=== PATIENT | female | born 1970 | race Caucasian/White ===

== ENCOUNTER 2017-01-07 12:01 | Emergency (ER) | payer SELFPAY ==
[~2017-01-07] VITALS: Ht 160 cm; Wt 74.8 kg
[2017-01-07 12:04] VITALS: BP 111/70
--- NOTE | 2017-01-07 12:33 | PHYS DOC ---
Past Medical History Past Medical History: Anxiety, Hypertension, Other Additional Past Medical Histor: bursitis in R shoulder Past Surgical History: Cholecystectomy, Hysterectomy, Other Additional Past Surgical Histo: left knee; laparascopy Alcohol Use: None Drug Use: None Adult General Chief Complaint Chief Complaint: KNEE INJURY [facility] Patient is a 46 year old female presents emergency department stating that she fell going down a hill yesterday. She states that she slipped on the wet grass. She states that her left leg went out to the side of her. She states that she is having pain in the posterior part of her knee. She has been able to ambulate with the left leg. She's been taken Naprosyn for the pain and discomfort with little relief. She denies any numbness or tingling into the lower extremity. Review of Systems Review of Systems Constitutional: Denies fever or chills [] Eyes: Denies change in visual acuity, redness, or eye pain [] HENT: Denies nasal congestion or sore throat [] Respiratory: Denies cough or shortness of breath [] Cardiovascular: No additional information not addressed in HPI [] GI: Denies abdominal pain, nausea, vomiting, bloody stools or diarrhea [] : Denies dysuria or hematuria [] Musculoskeletal: Denies back pain. C/o left knee pain Integument: Denies rash or skin lesions [] Neurologic: Denies headache, focal weakness or sensory changes [] Allergies Allergies Allergies Coded Allergies Type Severity Reaction Last Updated Verified No Known Drug Allergies 01/07/17 No Physical Exam Physical Exam Constitutional: Well developed, well nourished, no acute distress, non-toxic appearance. [] HENT: Normocephalic, atraumatic, bilateral external ears normal, oropharynx moist, no oral exudates, nose normal. [] Eyes: PERRLA, EOMI, conjunctiva normal, no discharge. [] Neck: Normal range of motion, no tenderness, supple, no stridor. [] Cardiovascular:Heart rate regular rhythm Lungs & Thorax: no respiratory distress Skin: Warm, dry, no erythema, no rash. [] Back: No tenderness Extremities: Left posterior knee tenderness, no cyanosis, no clubbing, ROM intact, no edema. Peripheral pulses 2+ cap refill brisk less than 2 seconds. Patient with full range of motion of the knee although has increased pain with straightening. Negative valgus, negative Parekh negative Remberto Neurologic: Alert and oriented X 3, normal motor function, normal sensory function, no focal deficits noted. [] Psychologic: Affect normal, judgement normal, mood normal. [] Current Patient Data Vital Signs Vital Signs Date Time Temp Pulse Resp B/P Pulse Ox O2 Delivery O2 Flow Rate FiO2 01/07/17 12:04 98.3 110 20 100 Room Air 98.3 EKG EKG [] Radiology/Procedures Radiology/Procedures [][facility] [address] [place] [address] IMAGING REPORT Signed PATIENT: BRITTANIE MENDOZA ACCOUNT: [id number] : 1970 LOCATION: ER AGE: 46 SEX: F EXAM STATUS: REG ER ORD. PHYSICIAN: ROMÁN GUIDO APRN REASON: fell left knee pain PROCEDURE: KNEE LEFT 3V Indication fall, pain. AP oblique and lateral views of the left knee were obtained. No bony abnormality is seen DICTATED and SIGNED BY: MANDI VERMA MD DATE: 01/07/17 1243 CC: ROMÁN GUIDO APRN; NO PCP ~ Course & Med Decision Making Course & Med Decision Making Pertinent Labs and Imaging studies reviewed. (See chart for details) X-rays were negative for any bony abnormalities. Patient will be placed in a knee immobilizer with recommendations for ice packs on 20 minutes off 20 minutes several times a day. Elevation as much as possible. She'll be provided with Dr. Lee's name to follow-up with. Since symptoms to return back to emergency department been provided. Patient can continue with naproxen which she 's been taken at home. Patient agrees with discharge instructions treatment regimens and follow-up recommendations. [] Dragon Disclaimer Dragon Disclaimer This electronic medical record was generated, in whole or in part, using a voice recognition dictation system. Departure Departure Impression: Primary Impression: Left knee pain Disposition: HOME, SELF-CARE Condition: STABLE Referrals: NO PCP (PCP) ESTHER SAMPSON MD Patient Instructions: Knee Immobilizer, [id number], Knee Pain, [id number] Additional Instructions: Home to rest. Continue naproxen for pain and discomfort. Ice packs on 20 minutes off 20 minutes several times a day. Elevation as much as possible. Wear the immobilizer whenever you're up ambulating. Follow-up with the pediatric within the next week. Return back to emergency department sign symptoms become worse. ROMÁN GUIDO APRN Jan 07, 2017 12:33
--- NOTE | 2017-01-07 12:47 | RAD ---
Indication fall, pain. AP oblique and lateral views of the left knee were obtained. No bony abnormality is seen
== END 2017-01-07 13:25 | disposition home or self-care (01) ==
LOC: ER 12:01
DX: M25.562 Pain in left knee (principal); F41.9 Anxiety disorder, unspecified; I10 Essential (primary) hypertension; Z98.890 Other specified postprocedural states; W01.0XXA Fall on same level from slipping, tripping and stumbling without subsequent striking against object, initial encounter; Y93.89 Activity, other specified; Y92.828 Other wilderness area as the place of occurrence of the external cause; Y99.8 Other external cause status
CPT/HCPCS: 29505; 73562; 99284-25